=== PATIENT | female | born 1950 | race Caucasian/White ===

== ENCOUNTER 2022-01-04 19:54 | Emergency (ER) | payer MEDICARE, SELFPAY ==
--- NOTE | ~2022-01-04 | XR_ITS ---
EXAMINATION: XR wrist LT min 3V DATE: 01/04/2022 20:17 INDICATION: Posterior and lateral left wrist pain post fall TECHNIQUE: Posteroanterior, ulnar deviation, oblique, and lateral views of the left wrist were obtain ed. COMPARISON: none FINDINGS: Diffuse osteopenia. Bone alignment is normal. No fracture. Moderate polyarticular osteoarthritis at t he first carpometacarpal and first interphalangeal joints and mild osteoarthritis at the wrist, midca rpal, triscaphe and first and fifth metacarpophalangeal joints. Cystic change at the proximal pole of the hamate. Soft tissues are unremarkable. IMPRESSION: 1. 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 No acute osseous abnorma lity. Reviewed, dictated and finalized at location A. IMPRESSION: 1. 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 No acute osseous abnormality.
[2022-01-04 20:03] VITALS: BP 160/63; PULSE 72; RESP 18; TEMP 37; O2SAT 99
--- NOTE | 2022-01-04 20:28 | ED.UPPEXIN ---
HPI - Extremity Injury (Upper) General Chief Complaint: Extremity Injury, Upper Stated Complaint: left wrist injury Time Seen by Provider: 01/04/22 20:00 Source: patient, RN notes reviewed and old records reviewed Mode of arrival: ambulatory Limitations: no limitations History of Present Illness HPI narrative: 61-year-old female who presents to [facility] care with complaints of injury to her left wrist which occurred about 30 mies prior to arrival. Patient states she was using hose to clean off house and she stepped back falling over umbrella stand and landed on her left hand outstretched with pain to left wrist radial aspect and thenar region of her hand. Patient has no obvious deformity but is concerned of fracture Patient wrapped hand and wrist with Coban and has been elevating her left hand and wrist. MD complaint: injury to: left, wrist and hand Onset (ago): hour(s) (Prior to arrival) Handedness: right Related Data Home Medications Medication Instructions Recorded Confirmed alendronate 70 mg tablet 70 mg PO DAILY 01/04/22 01/04/22 amlodipine 5 mg tablet 5 mg PO DAILY 01/04/22 01/04/22 cyanocobalamin (vitamin B-12) 1,000 mcg subcut MONTHLY 01/04/22 01/04/22 1,000 mcg/mL injection solution hydrochlorothiazide 12.5 mg tablet 12.5 mg PO DAILY 01/04/22 01/04/22 hydrocodone 5 mg-acetaminophen 325 1 tablet PO Q4-6H 01/04/22 01/04/22 mg tablet Allergies Allergy/AdvReac Type Severity Reaction Status Date / Time Sulfa (Sulfonamide Allergy Rash Verified 01/04/22 20:24 Antibiotics) Review of Systems Review of Systems: CONSTITUTIONAL: Denies fever, chills, or sweats. EYES: Denies visual changes, redness, or discharge. ENT: Denies rhinorrhea, congestion, sore throat, or otalgia. CARDIOVASCULAR: Denies chest pain, palpitations, or edema. RESPIRATORY: Denies cough or dyspnea. GASTROINTESTINAL: Denies abdominal pain, nausea, vomiting, or diarrhea. GENITOURINARY: Denies dysuria or hematuria. SKIN: Denies rash or itching. MUSCULOSKELETAL: Denies back pain, positive for left wrist pain and thenar region of hand, or myalgia. NEUROLOGIC: Denies headache, numbness, or weakness. PSYCHIATRIC: Denies anxiety or depression. All systems reviewed & are unremarkable except as noted in HPI and below PMFSH Past Medical History Medical History (Updated 01/07/22 @ 10:09 by Rosalind Major NP) COVID-19 October of 2021 Hypertension Surgical History Surgical History (Updated 01/07/22 @ 10:10 by Rosalind Major NP) Previous section Social History Social History (Updated 01/07/22 @ 10:09 by Rosalind Major NP) Smoking status: Never smoker Alcohol intake: current Alcohol use details: rare social Substance use type: does not use Living arrangements: with family Gender identity (if verbalized by the patient): Female Comments At time of signature agree with nursing documentaion of past medical, surgical, social and family history. There is no relevant family history pertinet to preseting complaint Exam Narrative: GENERAL: Well-appearing, well-nourished, and in no acute distress. HEAD: Normocephalic, atraumatic. EYES: PERRLA and EOMI. ENT: Nares clear, no rhinorrhea or epistaxis. Mucous membranes moist.TM's normal with good light refles=x, throat pink with no lesions or exudates or tonsil swelling NECK: Supple.no lymphadenopathy CHEST: Clear to auscultation. No respiratory distress.SAO2 99% on room air HEART: Regular rate and rhythm. No murmur heard. Normal peripheral pulses. ABDOMEN: Soft, nontender, nondistended, normal active bowel sounds. EXTREMITIES: Normal range of motion. Edema and bruising noted to thenar region of left hand,painful movement of left wrist, circulation and sensation is intact to left arm and hand with brisk capillary refill, no obvious deformity SKIN: Warm, dry, no rash. NEURO: No focal deficits. Alert and oriented x3. Course Course Level of Care: Express Care Visit Vital Sign
== END 2022-01-04 20:39 | disposition home or self-care (01) ==
PROVIDERS: Emergency Provider Registered Nurse; PCP Internal Medicine
DX: S60.212A Contusion of left wrist, initial encounter (principal); S60.222A Contusion of left hand, initial encounter; W18.09XA Striking against other object with subsequent fall, initial encounter; I10 Essential (primary) hypertension; Z86.16 Personal history of COVID-19
CPT/HCPCS: 73110; 99213; G0463